=== PATIENT | female | born 1995 | race American Indian/Alaskan Native ===

== ENCOUNTER 2021-03-04 20:53 | Outpatient (CLI) | payer MEDICAID ==
[2021-03-04 22:18] VITALS: BP 114/69
[2021-03-04] MEDS ORDERED: LACTATED RINGERS 1,000 ML IV ONE (23:26)
[2021-03-04] MEDS ORDERED: TERBUTALINE 1 MG/1 ML INJ SUB-Q SCH (23:45)
[2021-03-05 17:44] LABS: Bilirubin,Urine NEG (Negative); Blood,Urine NEG (Negative); Color,Urine Yellow (Yellow); Mucus,Urine 2+ /HPF
== END 2021-03-05 00:26 | disposition home or self-care (01) ==
LOC: TRG 20:53 → APU 21:05 → TRG 03-05 00:26
PROVIDERS: ATTEND Obstetrics & Gynecology
DX: Z34.92 Encounter for supervision of normal pregnancy, unspecified, second trimester (principal); Z3A.27 27 weeks gestation of pregnancy
CPT/HCPCS: 59025; 81001

== ENCOUNTER 2021-03-05 16:06 | Outpatient (CLI) | payer MEDICAID ==
[2021-03-05 16:43] VITALS: BP 107/68
[2021-03-05] MEDS ORDERED: LACTATED RINGERS 500 ML IV ONE (18:06)
[2021-03-05] MEDS ORDERED: BETAMET ACET/BETAMET NA PH 6 MG/ML INJ 5 ML MDV IM SCH (19:00)
[2021-03-05 20:07] LABS: Bilirubin,Urine NEG (Negative); Blood,Urine NEG (Negative); Color,Urine Yellow (Yellow); Mucus,Urine 2+ /HPF; Protein,Urine <15 mg/dL mg/dL (Negative)
--- NOTE | 2021-03-05 21:08 | Ultrasound Report ---
OBSTETRIC ULTRASOUND INDICATION: WELL BEING, EFW COMPARISON: No prior relevant imaging studies are available for comparison. TECHNIQUE: Transabdominal imaging was performed. FINDINGS: Single viable intrauterine is identified. lie: Cephalic. Heart rate: 136 bpm. measurements are as follows: Biparietal diameter 7.3 cm, 29 weeks 2 days Head circumference 24.3 cm, 26 weeks 2 days Abdominal circumference 22.6 cm, 27 weeks 0 days Femur length 5.1 cm, 27 weeks 2 days Estimated birthweight at this time is 1031 g. CONCLUSION: Single viable intrauterine currently in cephalic position with estimated birthweight at this time of 1031 g. The organic preparation technician did not measure amniotic fluid index. Signer Name: Layo Roe MD Signed: 03/05/2021 9:04 PM Workstation Name: [email or web address]
== END 2021-03-05 21:50 | disposition home or self-care (01) ==
LOC: TRG 16:06 → APU 16:08 → TRG 21:50
PROVIDERS: ATTEND Obstetrics & Gynecology
DX: O47.02 False labor before 37 completed weeks of gestation, second trimester (principal); Z3A.27 27 weeks gestation of pregnancy
CPT/HCPCS: 59025; 76816; 81001; 96372; J0702

== ENCOUNTER 2021-03-31 12:17 | Outpatient (CLI) | payer MEDICAID ==
[2021-03-31] MEDS ORDERED: LACTATED RINGERS 1,000 ML IV ONE (12:44)
[2021-03-31 12:54] VITALS: BP 111/71
[2021-03-31 13:20] LABS: Bilirubin,Urine NEG (Negative); Blood,Urine NEG (Negative); Color,Urine Yellow (Yellow); Mucus,Urine 3+ /HPF; Urobilinogen,Urine < 2.0 mg/dL (<2.0)
== END 2021-03-31 15:20 | disposition home or self-care (01) ==
LOC: TRG 12:17 → APU 12:20 → TRG 15:20
PROVIDERS: ATTEND Obstetrics & Gynecology
DX: O62.9 Abnormality of forces of labor, unspecified (principal); R10.9 Unspecified abdominal pain; Z3A.31 31 weeks gestation of pregnancy
CPT/HCPCS: 59025; 81001; 96360; J7120

== ENCOUNTER 2021-05-05 05:12 | Inpatient (IN) | payer MEDICAID ==
[2021-05-05] MEDS ORDERED: LACTATED RINGERS 500 ML IV ONE (05:21)
[2021-05-05] MEDS ORDERED: LACTATED RINGERS 1000 ML IV SOLN IV SCH (05:30)
[2021-05-05] MEDS ORDERED: ONDANSETRON 4 MG/2 ML INJ IV PRN (05:54)
[2021-05-05] MEDS ORDERED: OXYTOCIN 10 UNIT/1 ML INJ IM PRN (05:54)
[2021-05-05] MEDS ORDERED: AMPICILLIN/NS 2 GM/100 ML 2 GM/100 ML BAG IV ONE (05:54)
[2021-05-05] MEDS ORDERED: METHYLERGONOVINE MALEATE 0.2 MG/ML VIAL IM PRN (05:54)
[2021-05-05] MEDS ORDERED: NALOXONE 0.4 MG/1 ML INJ IV PRN (05:54)
[2021-05-05] MEDS ORDERED: MINERAL OIL 30 ML ORAL LIQD PO PRN (05:54)
[2021-05-05] MEDS ORDERED: LOPERAMIDE 2 MG CAP PO PRN (05:54)
[2021-05-05] MEDS ORDERED: BUTORPHANOL 2 MG/1 ML INJ IV PRN (05:54)
[2021-05-05] MEDS ORDERED: CARBOPROST TROMETHAMINE 250 MCG/1 ML INJ IM PRN (05:54)
[2021-05-05] MEDS ORDERED: LIDOCAINE (2%) 20 MG/1 ML VIAL 20 ML MDV INFILTRATI ONE (05:54)
[2021-05-05] MEDS ORDERED: fentaNYL 100 MCG/2 ML INJ IV PRN (05:54)
[2021-05-05] MEDS ORDERED: miSOPROStol 200 MCG TAB PR PRN (05:54)
[2021-05-05] MEDS ORDERED: NalbUPHINE 10 MG/1 ML INJ IV PRN (05:54)
[2021-05-05] MEDS ORDERED: ACETAMINOPHEN 325 MG TAB PO PRN (05:54)
[2021-05-05] MEDS ORDERED: ePHEDrine SULFATE 50 MG/1 ML INJ IV PRN ×2 (05:54→17:43)
[2021-05-05] MEDS ORDERED: TERBUTALINE 1 MG/1 ML INJ SUB-Q PRN (05:54)
[2021-05-05] MEDS ORDERED: OXYTOCIN DRIP 30 UNITS/500 ML BAG IV SCH (06:00)
[2021-05-05] MEDS ORDERED: LACTATED RINGERS 1,000 ML IV SCH (06:00)
[2021-05-05 06:20] LABS: Hematocrit 34.7 % (30.3-42.9); Mean Corpuscular HGB Conc 35 % (30-34); Mean Corpuscular Volume 91 fl (79-97); Platelet Count 179 K/mm3 (140-440); Red Blood Count 3.82 M/mm3 (3.65-5.03)
[2021-05-05 06:34] LABS: Bacteria,Urine 1+ /HPF (Negative); Bilirubin,Urine NEG (Negative); Blood,Urine SM (Negative); Color,Urine Yellow (Yellow); Mucus,Urine FEW /HPF; Protein,Urine <15 mg/dL mg/dL (Negative)
[2021-05-05 06:50] LABS: Hepatitis C Virus Antibody Non-Reactive (NonReactive)
--- NOTE | 2021-05-05 07:34 | History and Physical Report ---
History of Present Illness Date of examination: 05/05/21 Chief complaint: admitted for observation 36 weeks with painful contractions Past History Past Medical History: asthma Past Surgical History: no surgical history - Obstetrical History : 2 Medications and Allergies Allergies Allergy/AdvReac Type Severity Reaction Status Date / Time No Known Allergies Allergy Verified 03/31/21 12:43 Active Meds: Active Medications Acetaminophen (Acetaminophen 325 Mg Tab) 650 mg PO Q4H PRN PRN Reason: Pain, Mild (1-3) Butorphanol Tartrate (Butorphanol 2 Mg/1 Ml Inj) 2 mg IV Q2H PRN PRN Reason: Pain , Severe (7-10) Carboprost Tromethamine (Carboprost Tromethamine 250 Mcg/1 Ml Inj) 250 mcg IM ONCE PRN PRN Reason: Uterine Bleeding Ephedrine Sulfate (Ephedrine Sulfate 50 Mg/1 Ml Inj) 10 mg IV Q2M PRN PRN Reason: Hypotension Fentanyl (Fentanyl 100 Mcg/2 Ml Inj) 100 mcg IV Q2H PRN PRN Reason: Pain,Severe (7-10) LABOR PAIN Lactated Ringer's (Lactated Ringers) 1,000 mls @ 125 mls/hr IV DIRECT DEMETRIA Oxytocin/Sodium Chloride (Pitocin/Ns 30 Unit/500ml) 30 units in 500 mls @ 40 mls/hr IV TITR DEMETRIA; Protocol Ampicillin Sodium (Ampicillin/Ns 1 Gm/50 Ml) 1 gm in 50 mls @ 100 mls/hr IV Q4H DEMETRIA; Protocol Loperamide HCl (Loperamide 2 Mg Cap) 2 mg PO ONCE PRN PRN Reason: give with Hemabate Methylergonovine Maleate (Methylergonovine Maleate 0.2 Mg/Ml Vial) 0.2 mg IM ONCE PRN PRN Reason: Uterine Bleeding Mineral Oil (Mineral Oil 30 Ml Oral Liqd) 30 ml PO QHS PRN PRN Reason: Constipation Misoprostol (Misoprostol 200 Mcg Tab) [address] ONCE PRN PRN Reason: Uterine Bleeding Nalbuphine HCl (Nalbuphine 10 Mg/1 Ml Inj) 10 mg IV Q2H PRN PRN Reason: Pain, Moderate (4-6) Naloxone HCl (Naloxone 0.4 Mg/1 Ml Inj) 0.1 mg IV Q2MIN PRN PRN Reason: Res Rate </= 8 or 02 SAT < 92% Ondansetron HCl (Ondansetron 4 Mg/2 Ml Inj) 4 mg IV Q8H PRN PRN Reason: Nausea And Vomiting Oxytocin (Oxytocin 10 Unit/1 Ml Inj) 10 unit IM ONCE PRN PRN Reason: Uterine Bleeding Terbutaline Sulfate (Terbutaline 1 Mg/1 Ml Inj) 0.25 mg SUB-Q ONCE PRN PRN Reason: Hyperstimulation/Hypertonicity - Vital Signs Vital signs: Vital Signs Pulse BP 77 120/81 05/05/21 05:37 05/05/21 05:37 Temp Pulse Resp BP Pulse Ox 98.1 F 77 19 120/81 05/05/21 05:38 05/05/21 05:38 05/05/21 05:38 05/05/21 05:37 - Physical Exam Breasts: Positive: deferred Cardiovascular: Regular rate Lungs: Positive: Clear to auscultation Extremities: Positive: normal Deep Tendon Reflex Grade: Normal +2 - Obstetrical FHR: category 1 Results Result Diagrams: 05/05/21 05:30 Abnormal lab results 05/05/21 05/05/21 Range/Units 05:20 05:30 MCHC 35 H (30-34) % RDW 13.0 L (13.2-15.2) % Urine WBC (Auto) 7.0 H (0.0-6.0) /HPF All other labs normal. Assessment and Plan pain meds cfm monitor for cervical change Donaldo Anthony MD
[2021-05-05] MEDS ORDERED: AMPICILLIN/NS 1 GM/50 ML 1 GM/50 ML BAG IV SCH (10:00)
[2021-05-05 16:13] VITALS: BP 133/84
[2021-05-05] MEDS ORDERED: NALOXONE 2 MG/2 ML INJ IV PRN (17:43)
--- NOTE | 2021-05-05 17:54 | Anesthesia Consultation ---
Anesthesia Consult and Med Hx Date of service: 05/05/21 - Airway Anesthetic Teeth Evaluation: Poor ROM Head & Neck: Adequate Mental/Hyoid Distance: Adequate Mallampati Class: Class II Intubation Access Assessment: Probably Good - Pulmonary Exam CTA: Yes - Cardiac Exam Cardiac Exam: RRR - Pre-Operative Health Status ASA Pre-Surgery Classification: ASA2 Proposed Anesthetic Plan: Epidural - Pulmonary Hx Smoking: No Hx Asthma: Yes Hx Respiratory Symptoms: No SOB: No COPD: No Home Oxygen Therapy: No Hx Pneumonia: No Hx Sleep Apnea: No - Cardiovascular System Hx Hypertension: No Hx Coronary Artery Disease: No Hx Heart Attack/AMI: No Hx Angina: No Hx Percutaneous Transluminal Coronary Angioplasty (PTCA): No Hx Cardia Arrhythmia: No Hx Pacemaker: No Hx Internal Defibrillator: No Hx Valvular Heart Disease: No Hx Heart Murmur: No Hx Peripheral Vascular Disease: No - Central Nervous System Hx Neuromuscular Disorder: No Hx Seizures: No CVA: No Hx Back Pain: Yes Hx Psychiatric Problems: No - Gastrointestinal Hx Ulcer: No Hx Gastroesophageal Reflux Disease: No - Endocrine Hx Renal Disease: No Hx End Stage Renal Disease: No Hx Cirrhosis: No Hx Liver Disease: No Hx Insulin Dependent Diabetes: No Hx Non-Insulin Dependent Diabetes: No Hx Thyroid Disease: No Hx Hypothyroidism: No Hx Hyperthyroidism: No - Hematic Hx Anemia: No Hx Sickle Cell Disease: No - Other Systems Hx Alcohol Use: No Hx Substance Use: No Hx Cancer: No Hx Obesity: No
[2021-05-05] MEDS ORDERED: fentaNYL-BUPIV 2 MCG/ML-0.125% 200 MCG/100 ML BAG EPIDURAL SCH (18:00)
== END 2021-05-05 17:30 | disposition home or self-care (01) | DRG 780 ==
LOC: TRG 05:12 → LD 05:13 → APU 05:17 → TRG 05:54 → LD 06:21
PROVIDERS: ADMIT Obstetrics & Gynecology; ATTEND Obstetrics & Gynecology
DX: O47.03 False labor before 37 completed weeks of gestation, third trimester (principal); O99.513 Diseases of the respiratory system complicating pregnancy, third trimester; Z3A.36 36 weeks gestation of pregnancy; Z20.822 Contact with and (suspected) exposure to COVID-19; J45.909 Unspecified asthma, uncomplicated
CPT/HCPCS: 36415; 59025; 81001; 85027; 86592; 86706; 86762; 86803; 86850; 86900; 86901; 87806; 96360; G0378; U0003

== ENCOUNTER 2021-05-13 12:18 | Inpatient (IN) | payer MEDICAID ==
[2021-05-13] MEDS ORDERED: METHYLERGONOVINE MALEATE 0.2 MG/ML VIAL IM PRN (13:00)
[2021-05-13] MEDS ORDERED: ONDANSETRON 4 MG/2 ML INJ IV PRN (13:00)
[2021-05-13] MEDS ORDERED: ePHEDrine SULFATE 50 MG/1 ML INJ IV PRN (13:00)
[2021-05-13] MEDS ORDERED: ACETAMINOPHEN 325 MG TAB PO PRN (13:00)
[2021-05-13] MEDS ORDERED: LOPERAMIDE 2 MG CAP PO PRN (13:00)
[2021-05-13] MEDS ORDERED: OXYTOCIN DRIP 30 UNITS/500 ML BAG IV SCH ×2 (13:00)
[2021-05-13] MEDS ORDERED: CARBOPROST TROMETHAMINE 250 MCG/1 ML INJ IM PRN (13:00)
[2021-05-13] MEDS ORDERED: AMPICILLIN/NS 2 GM/100 ML 2 GM/100 ML BAG IV SCH (13:00)
[2021-05-13] MEDS ORDERED: LIDOCAINE (2%) 20 MG/1 ML VIAL 20 ML MDV INFILTRATI SCH (13:00)
[2021-05-13] MEDS ORDERED: OXYTOCIN 10 UNIT/1 ML INJ IM PRN (13:00)
[2021-05-13] MEDS ORDERED: BUTORPHANOL 2 MG/1 ML INJ IV PRN ×2 (13:00)
[2021-05-13] MEDS ORDERED: MINERAL OIL 30 ML ORAL LIQD PO PRN (13:00)
[2021-05-13] MEDS ORDERED: miSOPROStol 200 MCG TAB PR PRN (13:00)
[2021-05-13] MEDS ORDERED: TERBUTALINE 1 MG/1 ML INJ SUB-Q PRN (13:00)
[2021-05-13] MEDS ORDERED: fentaNYL 100 MCG/2 ML INJ IV PRN (13:00)
[2021-05-13] MEDS ORDERED: NalbUPHINE 10 MG/1 ML INJ IV PRN (13:00)
[2021-05-13 14:04] LABS: Hemoglobin 10.4 gm/dl (10.1-14.3); Mean Corpuscular HGB Conc 34 % (30-34); Mean Corpuscular Volume 92 fl (79-97); Platelet Count 181 K/mm3 (140-440); Red Blood Count 3.38 M/mm3 (3.65-5.03); Red Cell Distribution Width 13.1 % (13.2-15.2)
[2021-05-13 14:38] LABS: Alanine Aminotransferase 7 units/L (7-56); Uric Acid 5.5 mg/dL (3.5-7.6)
[2021-05-13 15:03] LABS: Bilirubin,Urine NEG (Negative); Blood,Urine NEG (Negative); Color,Urine Amber (Yellow)
[2021-05-13] MEDS: LACTATED RINGERS 1,000 ML IV SCH (15:19)
[2021-05-13 15:22] LABS: RBC,Urine < 1.0 /HPF (0.0-6.0)
[2021-05-13 15:29] LABS: WBC,Urine < 1.0 /HPF (0.0-6.0)
--- NOTE | 2021-05-13 16:11 | History and Physical Report ---
History of Present Illness Date of examination: 05/13/21 Date of admission: 05/13/21 12:18 Chief complaint: sent by provider for augmentation of labor History of present illness: 26 y/o presented to [facility] @ 37.5 wks for augmentation of labor r/t PIH. Pt denied VB, LOF, visual problems, or epigastric pain. She complained of mas and admitted to active . Pt initiated her c @ [facility] location @ 11 3/7 wks. She was co managed by [facility] r/t Hx of PTD and SGA. She has a hx of asthma, FFN pos, GBS, poor wt gain, uti with neg FREEDOM, varicella NI, and vit d def. Surgical hx of eye surgery 2016. Unremarkable family hx. Pt was admitted to L&D for delivery. Past History Past Medical History: other (PTD,asthma last attack unknown, poor wt gain, SGA, varicella NI, vit d def) Past Surgical History: other (eye surgery 2016) INFORMATION TECHNOLOGY COORDINATOR History: other (gbs) Family/Genetic History: none Social history: single, full code - Obstetrical History Expected Date of Delivery: 05/29/21 Actual Gestation: 37 Week(s) 5 Day(s) : 2 Para: 1 Hx # Term Pregnancies: 0 Number of Pregnancies: 1 Number of Living Children: 1 Medications and Allergies Allergies Allergy/AdvReac Type Severity Reaction Status Date / Time No Known Allergies Allergy Verified 03/31/21 12:43 Home Medications Medication Instructions Recorded Confirmed Last Taken Type No Known Home Medications [No 05/13/21 05/13/21 Unknown History Reported Home Medications] Active Meds: Active Medications Acetaminophen (Acetaminophen 325 Mg Tab) 650 mg PO Q4H PRN PRN Reason: Pain, Mild (1-3) Butorphanol Tartrate (Butorphanol 2 Mg/1 Ml Inj) 1 mg IV Q2H PRN PRN Reason: Pain, Moderate(4-6) LABOR PAIN Butorphanol Tartrate (Butorphanol 2 Mg/1 Ml Inj) 2 mg IV Q2H PRN PRN Reason: Pain , Severe (7-10) Carboprost Tromethamine (Carboprost Tromethamine 250 Mcg/1 Ml Inj) 250 mcg IM ONCE PRN PRN Reason: Uterine Bleeding Ephedrine Sulfate (Ephedrine Sulfate 50 Mg/1 Ml Inj) 10 mg IV Q2M PRN PRN Reason: Hypotension Fentanyl (Fentanyl 100 Mcg/2 Ml Inj) 100 mcg IV Q2H PRN PRN Reason: Pain,Severe (7-10) LABOR PAIN Oxytocin/Sodium Chloride (Pitocin/Ns 30 Unit/500ml) 30 units in 500 mls @ 2 mls/hr IV TITR DEMETRIA; Protocol Last Admin: 05/13/21 15:21 Dose: 2 ml/hr, 2 mls/hr Documented by: Lactated Ringer's (Lactated Ringers) 1,000 mls @ 125 mls/hr IV DIRECT DEMETRIA Last Admin: 05/13/21 15:19 Dose: 125 mls/hr Documented by: Oxytocin/Sodium Chloride (Pitocin/Ns 30 Unit/500ml) 30 units in 500 mls @ 40 mls/hr IV TITR DEMETRIA; Protocol Ampicillin Sodium (Ampicillin/Ns 1 Gm/50 Ml) 1 gm in 50 mls @ 100 mls/hr IV Q4H DEMETRIA; Protocol Ampicillin Sodium (Ampicillin/Ns 2 Gm/100 Ml) 2 gm in 100 mls @ 100 mls/hr IV ONCE DEMETRIA; Protocol Stop: 05/13/21 17:00 Last Admin: 05/13/21 15:21 Dose: 100 mls/hr Documented by: Lidocaine (Lidocaine (2%) 20 Mg/1 Ml Vial 20 Ml Mdv) 20 ml INFILTRATI ONCE DEMETRIA Stop: 05/14/21 12:59 Loperamide HCl (Loperamide 2 Mg Cap) 2 mg PO ONCE PRN PRN Reason: give with Hemabate Methylergonovine Maleate (Methylergonovine Maleate 0.2 Mg/Ml Vial) 0.2 mg IM ONCE PRN PRN Reason: Uterine Bleeding Mineral Oil (Mineral Oil 30 Ml Oral Liqd) 30 ml PO QHS PRN PRN Reason: Constipation Misoprostol (Misoprostol 200 Mcg Tab) 800 mcg [place] ONCE PRN PRN Reason: Uterine Bleeding Nalbuphine HCl (Nalbuphine 10 Mg/1 Ml Inj) 10 mg IV Q2H PRN PRN Reason: Pain, Moderate (4-6) Ondansetron HCl (Ondansetron 4 Mg/2 Ml Inj) 4 mg IV Q8H PRN PRN Reason: Nausea And Vomiting Oxytocin (Oxytocin 10 Unit/1 Ml Inj) 10 unit IM ONCE PRN PRN Reason: Uterine Bleeding Terbutaline Sulfate (Terbutaline 1 Mg/1 Ml Inj) 0.25 mg SUB-Q ONCE PRN PRN Reason: Hyperstimulation/Hypertonicity Review of Systems All systems: negative Eyes: deferred Ears, nose, mouth and throat: deferred Breasts: normal Genitourinary: normal appearance Rectal Exam: normal exam-external/orifice - Vital Signs Vital signs: Vital Signs Pulse BP 111 H 131/89 05/13/21 12:55 05/13/21 12:55 Temp Pulse Resp BP Pulse Ox 97.9 F 89 20 131/90 99 05/13/21 12:57 05/13/21 15:57 05/13/21 12:57 05/13/21 15:55 05/13/21 15:57 - Physical Exam Breasts: Positive: normal Abdomen: Positive: normal appearance, soft, normal bowel sounds Genitourinary (Female): Positive: normal external genitalia, normal perenium Vulva: both: normal Vagina: Positive: normal moisture Uterus: Positive: enlarged, normal contour, other (gravid) Adnexa: both: normal Anus/Rectum: Positive: normal perianal skin Extremities: Positive: normal - Obstetrical FHR: auscultation normal, category 1 Uterine Contraction Monitor Mode: External Cervical Dilatation: 5.5 Cervical Effacement Percentage: 90 station: +1 Uterine Contraction Pattern: Regular Uterine Tone Measurement Phase: Resting Uterine Contraction Intensity: Strong/Firm Results Result Diagrams: 05/13/21 13:19 05/13/21 13:19 Abnormal lab results 05/13/21 05/13/21 Range/Units 13:19 13:19 RBC 3.38 L (3.65-5.03) M/mm3 RDW 13.1 L (13.2-15.2) % Lactate Dehydrogenase 201 H (91-180) units/L All other labs normal. Assessment and Plan A: IUP@ 37.5 wks PIH Hx PTD Asthma FFN positive GBS pos SGA Varicella NI Poor wt gain P: Admit to L&D Continuos monitoring PIH labs GBS protocal Offer vaccine pp Notify NICU Pain med/Epidural prn Anticipate - Patient Problems (1) Supervision of normal IUP (intrauterine ) in multigravida Current Visit: Yes Status: Acute (2) Positive GBS test Current Visit: Yes Status: Acute (3) PIH ( induced hypertension) Current Visit: Yes Status: Acute
[2021-05-13] MEDS ORDERED: hydrALAZINE 20 MG/1 ML INJ ONE (16:54)
[2021-05-13] MEDS ORDERED: MAGNESIUM SULFATE 40GM/1000ML 40 GM/1,000 ML BAG IV ONE (16:55)
[2021-05-13] MEDS ORDERED: MAGNESIUM SULFATE 4 GM/100 ML BAG IV ONE (16:55)
[2021-05-13] MEDS: AMPICILLIN/NS 1 GM/50 ML 1 GM/50 ML BAG IV SCH (19:12)
[2021-05-13] MEDS ORDERED: NALOXONE 2 MG/2 ML INJ IV PRN (19:56)
--- NOTE | 2021-05-13 19:56 | Anesthesia Consultation ---
Anesthesia Consult and Med Hx Date of service: 05/13/21 - Airway Anesthetic Teeth Evaluation: Poor ROM Head & Neck: Adequate Mental/Hyoid Distance: Adequate Mallampati Class: Class II Intubation Access Assessment: Good - Pulmonary Exam CTA: Yes - Cardiac Exam Cardiac Exam: RRR - Pre-Operative Health Status ASA Pre-Surgery Classification: ASA2 Proposed Anesthetic Plan: Epidural - Pulmonary Hx Smoking: No Hx Asthma: Yes (last used inhaler years ago) Hx Respiratory Symptoms: No SOB: No COPD: No Home Oxygen Therapy: No Hx Pneumonia: No Hx Sleep Apnea: No - Cardiovascular System Hx Hypertension: No Hx Coronary Artery Disease: No Hx Heart Attack/AMI: No Hx Angina: No Hx Percutaneous Transluminal Coronary Angioplasty (PTCA): No Hx Cardia Arrhythmia: No Hx Pacemaker: No Hx Internal Defibrillator: No Hx Valvular Heart Disease: No Hx Heart Murmur: No Hx Peripheral Vascular Disease: No - Central Nervous System Hx Neuromuscular Disorder: No Hx Seizures: No CVA: No Hx Back Pain: Yes Hx Psychiatric Problems: No - Gastrointestinal Hx Ulcer: No Hx Gastroesophageal Reflux Disease: No - Endocrine Hx Renal Disease: No Hx End Stage Renal Disease: No Hx Cirrhosis: No Hx Liver Disease: No Hx Insulin Dependent Diabetes: No Hx Non-Insulin Dependent Diabetes: No Hx Thyroid Disease: No Hx Hypothyroidism: No Hx Hyperthyroidism: No - Hematic Hx Anemia: No Hx Sickle Cell Disease: No - Other Systems Hx Alcohol Use: No Hx Substance Use: No Hx Cancer: No Hx Obesity: No
[2021-05-13] MEDS ORDERED: fentaNYL-BUPIV 2 MCG/ML-0.125% 200 MCG/100 ML BAG EPIDURAL SCH (21:00)
[2021-05-13] MEDS: ePHEDrine SULFATE 50 MG/1 ML INJ IV PRN ×2 (21:50→22:21)
[2021-05-14] MEDS: AMPICILLIN/NS 1 GM/50 ML 1 GM/50 ML BAG IV SCH (00:47)
[2021-05-14] MEDS ORDERED: ACETAMINOPHEN 325 MG TAB PO PRN (04:07)
[2021-05-14] MEDS ORDERED: ONDANSETRON 4 MG/2 ML INJ IV PRN ×2 (04:07→09:30)
--- NOTE | 2021-05-14 04:15 | Procedure Note ---
OB Delivery Note - Delivery Date of Delivery: 05/14/21 Surgeon: FARZANA DEJESUS JR Estimated blood loss: 500cc - Vaginal Delivery presentation: vertex Delivery position: OA Intrapartum events: none Delivery induction: none Delivery augmentation: rupture of membranes, pitocin Delivery monitor: external FHT, external uterine Route of delivery: Delivery placenta: spontaneous Delivery laceration: vaginal side wall (R, hemostatic, not repaired) Anesthesia: epidural Delivery comments: Status post spontaneous vaginal delivery of female infant at 0352. Fundus firm below the umbilicus. First-degree right labial laceration noted to be hemostatic and not repaired. Weight 2970g APGARS 8/9. EBL 500 cc. - Infant A at 1 minute: 8 at 5 minutes: 9 Gender: Female
[2021-05-14] MEDS ORDERED: diphenhydrAMINE 25 MG CAP PO PRN (05:00)
[2021-05-14] MEDS ORDERED: PROMETHAZINE 25 MG TAB PO PRN (05:00)
[2021-05-14] MEDS ORDERED: PROMETHAZINE 25 MG RECT SUPP PR PRN (05:00)
[2021-05-14] MEDS ORDERED: BENZOCAINE/MENTHOL 20/0.5% TOP SPRAY 56 GM TP PRN (05:00)
[2021-05-14] MEDS ORDERED: IBUPROFEN 600 MG TAB PO SCH (05:00)
[2021-05-14] MEDS ORDERED: LANOLIN/ZINC/DIMETHICONE (LANSINOH) 7 GM TP PRN (05:00)
[2021-05-14] MEDS ORDERED: WITCH HAZEL/ GLYCERIN PAD TP PRN (05:00)
[2021-05-14] MEDS ORDERED: OXYTOCIN DRIP 30 UNITS/500 ML BAG IV SCH (05:00)
[2021-05-14] MEDS ORDERED: MAGNESIUM HYDROXIDE (MOM) ORAL LIQD UDC PO PRN (05:00)
[2021-05-14] MEDS ORDERED: MAGNESIUM SULFATE 40GM/1000ML 40 GM/1,000 ML BAG IV SCH ×2 (09:00→13:00)
[2021-05-14] MEDS: LACTATED RINGERS 1,000 ML IV SCH ×2 (12:39→23:17)
[2021-05-14 17:25] LABS: Hematocrit 36.2 % (30.3-42.9)
--- NOTE | 2021-05-14 19:12 | Event Note ---
Date: 05/14/21 Pt had vag delivery uncomplicated per report from CNW and placed on mag sulfate for preeclampsia. pt evaluated and doing well. Fundus firm 3cm below the umbilicus and scant vag bleed. Will continue current seizure prophylaxis for 24hrs post delivery. BP now wnl.
--- NOTE | 2021-05-14 19:27 | Post Anesthesia Evaluation ---
- Post Anesthesia Evaluation Patient Participated: Yes Airway Patent: Yes Stable Respiratory Function: Yes Nausea/Vomiting: No Temp > 96.8F: Yes Pain Manageable: Yes Adequeate Hydration: Yes Anesthesia Complications: No Block Receding Appropriately: Yes Patient on Ventilator: No
[2021-05-14] MEDS: oxyCODONE /ACETAMINOPHEN 5-325MG TAB PO PRN (23:13)
[2021-05-15] MEDS: oxyCODONE /ACETAMINOPHEN 5-325MG TAB PO PRN (06:15)
--- NOTE | 2021-05-15 14:33 | Progress Note ---
Assessment and Plan A: day 1 S/P . Preeclampsia s/p magnesium sulfate. P: Continue to monitor BPs. Continue routine course. Anticipate discharge home tomorrow if patient continues to do well. Subjective - Subjective Date of service: 05/15/21 Principal diagnosis: day 1 S/P Interval history: Patient denies headache, visual disturbance, nausea or swelling. Patient reports: appetite normal, voiding normally, pain well controlled, flatus, ambulating normally, no dizzy ambulation, no nauseated [place]: doing well Objective - Vital Signs Latest vital signs: Vital Signs Temp Pulse Resp BP BP BP Pulse Ox 05/15/21 08:53 98.1 F 75 16 118/81 94 05/15/21 08:00 05/15/21 06:00 98.5 F 66 20 133/90 97 05/15/21 05:58 05/15/21 03:58 75 128/80 05/15/21 03:31 72 98 05/15/21 03:26 74 99 05/15/21 03:23 89 89 05/15/21 03:21 48 L 94 05/15/21 03:18 33 L 92 05/15/21 03:16 58 L 95 05/15/21 03:10 58 L 78 L 05/15/21 03:07 79 L 05/15/21 03:06 197 H 93 05/15/21 03:02 52 L 92 05/15/21 03:00 70 80 L 05/15/21 02:58 68 137/87 05/15/21 02:56 179 H 93 05/15/21 02:55 187 H 100 05/15/21 02:51 119 H 93 05/15/21 02:46 93 05/15/21 02:45 58 L 92 05/15/21 02:40 87 94 05/15/21 02:39 66 93 05/15/21 02:35 65 94 05/15/21 02:29 36 L 95 05/15/21 02:25 152 H 82 L 05/15/21 02:24 82 L 05/15/21 02:19 47 L 97 05/15/21 02:12 59 L 92 05/15/21 02:06 130 H 86 05/15/21 02:02 81 99 05/15/21 01:58 72 129/84 99 05/15/21 01:53 66 98 05/15/21 01:48 69 98 05/15/21 01:43 73 98 05/15/21 01:38 79 98 05/15/21 01:22 78 92 05/15/21 01:16 82 92 05/15/21 01:15 82 97 05/15/21 01:11 77 100 05/15/21 01:09 86 92 05/15/21 01:06 85 99 05/15/21 01:03 94 H 94 05/15/21 01:00 89 98 05/15/21 00:58 78 133/91 05/15/21 00:56 97 H 100 05/15/21 00:51 83 99 05/15/21 00:45 89 99 05/15/21 00:40 89 99 05/15/21 00:36 82 100 05/15/21 00:30 81 100 05/15/21 00:25 93 H 100 05/15/21 00:21 88 100 05/15/21 00:17 104 H 77 L 05/15/21 00:15 75 99 05/15/21 00:10 81 99 05/15/21 00:05 83 99 05/15/21 00:00 84 100 05/14/21 23:58 73 136/94 05/14/21 23:55 80 99 05/14/21 23:50 80 100 05/14/21 23:45 71 99 05/14/21 23:40 74 100 05/14/21 23:35 82 99 05/14/21 23:30 75 99 05/14/21 23:25 76 100 05/14/21 23:20 76 100 05/14/21 23:15 79 98 05/14/21 23:10 77 100 05/14/21 23:05 87 100 05/14/21 23:00 92 H 100 05/14/21 22:58 94 H 158/89 05/14/21 22:55 79 99 05/14/21 22:50 77 99 05/14/21 22:45 77 99 05/14/21 22:40 80 100 05/14/21 22:35 92 H 99 05/14/21 22:30 80 99 05/14/21 22:25 84 99 05/14/21 22:20 86 100 05/14/21 22:15 81 99 05/14/21 22:10 98.1 F 77 18 99 05/14/21 22:06 05/14/21 22:05 86 98 05/14/21 22:00 95 H 99 05/14/21 21:58 68 136/85 05/14/21 21:55 79 100 05/14/21 21:50 77 98 05/14/21 21:45 85 99 05/14/21 21:40 84 100 05/14/21 21:35 83 100 05/14/21 21:33 82 139/85 05/14/21 21:30 91 H 100 05/14/21 21:25 86 100 05/14/21 21:20 86 100 05/14/21 21:15 87 100 05/14/21 21:10 96 H 100 05/14/21 21:05 91 H 100 05/14/21 21:00 83 100 05/14/21 20:58 87 160/100 05/14/21 20:55 96 H 100 05/14/21 20:50 73 100 05/14/21 20:45 72 100 05/14/21 20:40 77 100 05/14/21 20:35 73 100 05/14/21 20:30 75 100 05/14/21 20:25 74 100 05/14/21 20:20 72 100 05/14/21 20:15 77 99 05/14/21 20:10 100 H 100 05/14/21 20:05 92 H 99 05/14/21 20:00 100 H 100 05/14/21 19:55 92 H 99 05/14/21 19:50 92 H 99 05/14/21 19:45 91 H 100 05/14/21 19:40 88 99 05/14/21 19:35 89 99 05/14/21 19:30 86 100 05/14/21 19:25 93 H 100 05/14/21 19:20 94 H 99 05/14/21 19:15 90 100 05/14/21 19:10 82 100 05/14/21 19:05 80 100 05/14/21 19:00 76 100 05/14/21 18:58 83 142/88 05/14/21 18:55 98 H 100 05/14/21 18:50 93 H 100 05/14/21 18:45 86 100 05/14/21 18:40 84 100 05/14/21 18:35 113 H 100 05/14/21 18:30 83 100 05/14/21 18:25 87 100 05/14/21 18:20 92 H 99 05/14/21 18:15 98.0 F 78 20 133/94 100 05/14/21 18:14 76 141/92 05/14/21 18:10 83 100 05/14/21 18:05 80 100 05/14/21 18:00 118 H 85 05/14/21 17:58 93 H 133/94 05/14/21 17:44 88 05/14/21 17:38 54 L 0 L 05/14/21 17:32 89 85 05/14/21 17:27 102 H 100 05/14/21 17:22 76 98 05/14/21 17:17 72 99 05/14/21 17:12 70 99 05/14/21 17:07 73 99 05/14/21 17:02 74 99 05/14/21 17:00 71 20 133/81 99 05/14/21 16:58 71 133/81 05/14/21 16:57 71 98 05/14/21 16:52 78 99 05/14/21 16:47 73 99 05/14/21 16:43 80 77 L 05/14/21 16:42 83 100 05/14/21 16:37 78 99 05/14/21 16:32 83 99 05/14/21 16:27 68 98 05/14/21 16:22 75 99 05/14/21 16:17 83 100 05/14/21 16:12 81 100 05/14/21 16:07 76 100 05/14/21 16:02 76 99 05/14/21 16:01 97.8 F 74 20 119/72 100 05/14/21 15:58 75 119/72 05/14/21 15:57 80 99 05/14/21 15:52 81 100 05/14/21 15:47 75 100 05/14/21 15:42 77 100 05/14/21 15:37 85 100 05/14/21 15:32 92 H 100 05/14/21 15:27 88 100 05/14/21 15:22 66 92 05/14/21 15:20 67 87 05/14/21 15:16 87 100 09/23/21 15:11 86 99 05/14/21 15:06 82 100 05/14/21 15:01 92 H 100 05/14/21 15:00 97.6 F 94 H 20 137/93 100 05/14/21 14:57 76 137/93 05/14/21 14:56 77 141/95 99 05/14/21 14:55 77 140/96 05/14/21 14:51 83 99 05/14/21 14:46 78 99 05/14/21 14:41 95 H 99 05/14/21 14:40 83 140/93 05/14/21 14:36 85 99 05/14/21 14:31 89 100 Pulse Ox 05/15/21 08:53 05/15/21 08:00 97 05/15/21 06:00 05/15/21 05:58 97 05/15/21 03:58 05/15/21 03:31 05/15/21 03:26 05/15/21 03:23 05/15/21 03:21 05/15/21 03:18 05/15/21 03:16 05/15/21 03:10 05/15/21 03:07 05/15/21 03:06 05/15/21 03:02 05/15/21 03:00 05/15/21 02:58 05/15/21 02:56 05/15/21 02:55 05/15/21 02:51 05/15/21 02:46 05/15/21 02:45 05/15/21 02:40 05/15/21 02:39 05/15/21 02:35 05/15/21 02:29 05/15/21 02:25 05/15/21 02:24 05/15/21 02:19 05/15/21 02:12 05/15/21 02:06 05/15/21 02:02 05/15/21 01:58 05/15/21 01:53 05/15/21 01:48 05/15/21 01:43 05/15/21 01:38 05/15/21 01:22 05/15/21 01:16 05/15/21 01:15 05/15/21 01:11 05/15/21 01:09 05/15/21 01:06 05/15/21 01:03 05/15/21 01:00 05/15/21 00:58 05/15/21 00:56 05/15/21 00:51 05/15/21 00:45 05/15/21 00:40 05/15/21 00:36 05/15/21 00:30 05/15/21 00:25 05/15/21 00:21 05/15/21 00:17 05/15/21 00:15 05/15/21 00:10 05/15/21 00:05 05/15/21 00:00 05/14/21 23:58 05/14/21 23:55 05/14/21 23:50 05/14/21 23:45 05/14/21 23:40 05/14/21 23:35 05/14/21 23:30 05/14/21 23:25 05/14/21 23:20 05/14/21 23:15 05/14/21 23:10 05/14/21 23:05 05/14/21 23:00 05/14/21 22:58 05/14/21 22:55 05/14/21 22:50 05/14/21 22:45 05/14/21 22:40 05/14/21 22:35 05/14/21 22:30 05/14/21 22:25 05/14/21 22:20 05/14/21 22:15 05/14/21 22:10 05/14/21 22:06 05/14/21 22:05 05/14/21 22:00 05/14/21 21:58 05/14/21 21:55 05/14/21 21:50 05/14/21 21:45 05/14/21 21:40 05/14/21 21:35 05/14/21 21:33 05/14/21 21:30 05/14/21 21:25 05/14/21 21:20 05/14/21 21:15 05/14/21 21:10 05/14/21 21:05 05/14/21 21:00 05/14/21 20:58 05/14/21 20:55 05/14/21 20:50 05/14/21 20:45 05/14/21 20:40 05/14/21 20:35 05/14/21 20:30 05/14/21 20:25 05/14/21 20:20 05/14/21 20:15 05/14/21 20:10 05/14/21 20:05 05/14/21 20:00 05/14/21 19:55 05/14/21 19:50 05/14/21 19:45 05/14/21 19:40 05/14/21 19:35 05/14/21 19:30 05/14/21 19:25 05/14/21 19:20 05/14/21 19:15 05/14/21 19:10 05/14/21 19:05 05/14/21 19:00 05/14/21 18:58 05/14/21 18:55 05/14/21 18:50 05/14/21 18:45 05/14/21 18:40 05/14/21 18:35 05/14/21 18:30 05/14/21 18:25 05/14/21 18:20 05/14/21 18:15 05/14/21 18:14 05/14/21 18:10 05/14/21 18:05 05/14/21 18:00 05/14/21 17:58 05/14/21 17:44 05/14/21 17:38 05/14/21 17:32 05/14/21 17:27 05/14/21 17:22 05/14/21 17:17 05/14/21 17:12 05/14/21 17:07 05/14/21 17:02 05/14/21 17:00 05/14/21 16:58 05/14/21 16:57 05/14/21 16:52 05/14/21 16:47 05/14/21 16:43 05/14/21 16:42 05/14/21 16:37 05/14/21 16:32 05/14/21 16:27 05/14/21 16:22 05/14/21 16:17 05/14/21 16:12 05/14/21 16:07 05/14/21 16:02 05/14/21 16:01 05/14/21 15:58 05/14/21 15:57 05/14/21 15:52 05/14/21 15:47 05/14/21 15:42 05/14/21 15:37 05/14/21 15:32 05/14/21 15:27 05/14/21 15:22 05/14/21 15:20 05/14/21 15:16 05/14/21 15:11 05/14/21 15:06 05/14/21 15:01 05/14/21 15:00 05/14/21 14:57 05/14/21 14:56 05/14/21 14:55 05/14/21 14:51 05/14/21 14:46 05/14/21 14:41 05/14/21 14:40 05/14/21 14:36 05/14/21 14:31 Intake and Output 05/14/21 05/15/21 05/15/21 23:59 07:59 15:59 Intake Total 1570 Output Total 1550 1275 Balance 20 -1275 Intake: IV 1000 Lactated Ringers 1,000 ml 1000 @ 125 mls/hr IV DIRECT DEMETRIA Rx#:[id number] Oral 570 Output: Urine 1550 1275 Indwelling Catheter 1550 375 Uretheral (Jones) 500 Void 400 Other: Total, Intake Amount 450 Total, Output Amount 350 100 - Exam Cardiovascular: Present: Regular rate Lungs: Present: Clear to auscultation Abdomen: Present: normal appearance, soft. Absent: distention, tenderness, guarding, rigidity Uterus: Present: normal, firm, fundal height below umbilicus. Absent: bogginess, tenderness Extremities: Absent: tenderness, edema - Labs Labs: Abnormal lab results 05/14/21 05/15/21 Range/Units 16:39 00:06 Magnesium 6.10 H 5.10 H (1.7-2.3) mg/dL
[2021-05-16] MEDS: oxyCODONE /ACETAMINOPHEN 5-325MG TAB PO PRN ×2 (04:51→15:05)
--- NOTE | 2021-05-16 11:33 | Progress Note ---
Assessment and Plan Plan for d/c to home Donaldo Anthony MD Subjective - Subjective Date of service: 05/16/21 Principal diagnosis: day 1 S/P Interval history: PE: controlled on PO meds meets discharge criteria follow up one week Donaldo Anthony MD Patient reports: appetite normal, voiding normally, pain well controlled, ambulating normally Nunez: doing well Objective - Vital Signs Latest vital signs: Vital Signs Temp Pulse Resp BP BP BP Pulse Ox 05/16/21 08:30 05/16/21 08:15 98.2 F 63 18 148/95 98 05/16/21 04:51 18 05/16/21 04:19 98.7 F 75 16 141/83 95 05/16/21 01:34 98.0 F 70 18 148/90 97 05/15/21 20:09 98.0 F 67 18 150/90 96 05/15/21 20:07 67 150/90 05/15/21 17:50 147/92 05/15/21 17:44 98.5 F 65 16 153/97 99 Pulse Ox 05/16/21 08:30 99 05/16/21 08:15 05/16/21 04:51 05/16/21 04:19 05/16/21 01:34 05/15/21 20:09 05/15/21 20:07 99 05/15/21 17:50 05/15/21 17:44 Intake and Output 05/15/21 05/16/21 05/16/21 23:59 07:59 15:59 Intake Total 240 240 240 Output Total 400 Balance -160 240 240 Intake: Intake, Free Water 240 240 240 Output: Urine 400 Void 400 Other: Total, Output Amount 400 # Voids Indwelling Catheter 1 Void 1 2 1 - Exam Breasts: Present: deferred Cardiovascular: Present: Regular rate Lungs: Present: Clear to auscultation Abdomen: Present: normal appearance, soft, normal bowel sounds Uterus: Present: fundal height below umbilicus Extremities: Present: normal Deep Tendon Reflex Grade: Normal +2
--- NOTE | 2021-05-16 11:34 | Discharge Summary ---
Providers - Providers Date of Admission: 05/13/21 12:18 Date of discharge: 05/16/21 Attending physician: FARZANA DEJESUS JR, MD Primary care physician: SHARYN BYERS MD Hospitalization Delivery: Discharge diagnosis: IUP at term delivered, other (preeclampsia) Condition at discharge: Stable Disposition: 01 HOME / SELF CARE / HOMELESS Plan - Provider Discharge Summary Activity: no sex for 6 weeks Diet: routine Instructions: routine Additional instructions: [] Smoking cessation referral if applicable(refer to patient education folder for contact #) [] Refer to [facility] Booklet Call your doctor immediately for: * Fever > 100.5 * Heavy vaginal bleeding ( >1 pad per hour) * Severe persistent headache * Shortness of breath * Reddened, hot, painful area to leg or breast * Drainage or odor from incision. * Keep incision clean and dry at all times and follow doctor's instructions regarding bathing/showering - Follow up plan Follow up: SHARYN BYERS MD [Primary Care Provider] - 7 Days
[2021-05-17] MEDS: oxyCODONE /ACETAMINOPHEN 5-325MG TAB PO PRN (04:16)
[2021-05-17 12:46] VITALS: BP 168/99
--- NOTE | 2021-05-17 13:06 | Progress Note ---
Assessment and Plan A: day 3 S/P . Preeclampsia, S/P magnesium sulfate. Elevated blood pressures. P: Labetalol 300 mg po BID (increased just now from 200 mg po BID). Repeat labs ordered. Consulted with Dr. Anthony re: this patient. Subjective - Subjective Date of service: 05/17/21 Principal diagnosis: day 3 S/P ; preeclampsia Interval history: day 3 S/P . Preeclampsia. Patient was going to be discharged yesterday but was kept due to elevated blood pressures. This morning BP is elevated. Labetalol increased to 300 mg po BID. Repeat labs ordered. Patient denies headache or visual disturbance. Patient denies pain. Patient reports: appetite normal, voiding normally, pain well controlled, flatus, ambulating normally, no dizzy ambulation, no nauseated Datil: doing well Objective - Vital Signs Latest vital signs: Vital Signs Temp Pulse Resp BP BP BP Pulse Ox 05/17/21 12:10 98.0 F 74 18 168/99 98 05/17/21 09:50 05/17/21 07:45 97.8 F 63 18 169/103 157/94 98 05/17/21 04:20 98 F 140/61 05/17/21 04:16 20 05/17/21 04:12 97.0 F L 61 16 166/96 98 05/17/21 04:08 67 150/79 98 05/16/21 23:55 98.0 F 72 16 141/81 96 05/16/21 21:37 67 141/80 05/16/21 19:50 05/16/21 15:51 98.2 F 74 18 135/93 96 05/16/21 15:19 141/99 05/16/21 15:16 98.4 F 94 H 18 160/94 99 Pulse Ox 05/17/21 12:10 05/17/21 09:50 100 05/17/21 07:45 05/17/21 04:20 05/17/21 04:16 05/17/21 04:12 05/17/21 04:08 05/16/21 23:55 05/16/21 21:37 05/16/21 19:50 98 05/16/21 15:51 05/16/21 15:19 05/16/21 15:16 Intake and Output 05/16/21 05/17/21 05/17/21 23:59 07:59 15:59 Intake Total 120 420 120 Balance 120 420 120 Intake: Intake, Free Water 120 420 120 Other: # Voids Void 1 1 1 - Exam Cardiovascular: Present: Regular rate Lungs: Present: Clear to auscultation Abdomen: Present: normal appearance, soft. Absent: distention, tenderness, guarding, rigidity Uterus: Present: normal, firm, fundal height below umbilicus. Absent: boggines s, tenderness Extremities: Present: normal. Absent: tenderness, edema
--- NOTE | 2021-05-17 14:06 | Discharge Summary ---
Providers - Providers Date of Admission: 05/13/21 12:18 Date of discharge: 05/17/21 Attending physician: FARZANA DEJESUS JR, MD Primary care physician: SHARYN BYERS MD Hospitalization Condition at discharge: Stable Disposition: LEFT AGAINST MEDICAL ADVICE Plan - Discharge Medications Prescriptions: labetaloL [Labetalol 200mg TAB] 200 mg PO BID #60 tablet - Provider Discharge Summary Additional instructions: [] Smoking cessation referral if applicable(refer to patient education folder for contact #) [] Refer to [facility]'s [facility] Booklet Call your doctor immediately for: * Fever > 100.5 * Heavy vaginal bleeding ( >1 pad per hour) * Severe persistent headache * Shortness of breath * Reddened, hot, painful area to leg or breast * Drainage or odor from incision. * Keep incision clean and dry at all times and follow doctor's instructions regarding bathing/showering - Follow up plan Follow up: HSARYN BYERS MD [Primary Care Provider] - 7 Days Forms: [facility] Discharge Summary
== END 2021-05-17 15:05 | disposition left against medical advice (07) | DRG 774 ==
LOC: LD 12:18 → OB 05-15 04:56
PROVIDERS: ADMIT Obstetrics & Gynecology; ATTEND Obstetrics & Gynecology
PROC: 10E0XZZ Delivery of Products of Conception, External Approach (ICD-10-PCS; principal; 2021-05-14)
PROC: 3E0R3BZ Introduction of Anesthetic Agent into Spinal Canal, Percutaneous Approach (ICD-10-PCS; 2021-05-14)
PROC: 00HU33Z Insertion of Infusion Device into Spinal Canal, Percutaneous Approach (ICD-10-PCS; 2021-05-14)
DX: O99.824 Streptococcus B carrier state complicating childbirth (principal); O14.95 Unspecified pre-eclampsia, complicating the puerperium; O13.4 Gestational [pregnancy-induced] hypertension without significant proteinuria, complicating childbirth; Z3A.37 37 weeks gestation of pregnancy; Z37.0 Single live birth; O99.52 Diseases of the respiratory system complicating childbirth; J45.909 Unspecified asthma, uncomplicated; Z20.822 Contact with and (suspected) exposure to COVID-19; Z53.29 Procedure and treatment not carried out because of patient's decision for other reasons; Z88.8 Allergy status to other drugs, medicaments and biological substances
CPT/HCPCS: 36415; 59025; 81001; 82565; 83615; 83735; 84450; 84460; 84550; 85014; 85018; 85027; 86592; 86850; 86900; 86901; G0378; J0290; J0360; J2405; J2590; J3475; J7120; Q0169; U0003